=== PATIENT | female | born 1995 | race Caucasian/White ===

== ENCOUNTER 2019-05-05 20:37 | Outpatient (CLI) | payer MEDICAID ==
[2019-05-05 21:28] LABS: APPEARANCE,URINE CLOUDY; BILIRUBIN,URINE NEGATIVE (NEGATIVE); COLOR,URINE YELLOW; GLUCOSE, URINE NEGATIVE (NEGATIVE); KETONES,URINE NEGATIVE (NEGATIVE); LEUKOCYTE ESTERASE,URINE LARGE (NEGATIVE); NITRITE,URINE NEGATIVE (NEGATIVE); PROTEIN,URINE NEGATIVE (NEGATIVE); URINE SPECIFIC GRAVITY 1.006; UROBILINOGEN,URINE NEGATIVE mg/dL (<2.0)
[2019-05-05 21:46] LABS: URINE AMPHETAMINES SCREEN NEGATIVE; URINE BARBITURATES SCREEN NEGATIVE; URINE BENZODIAZEPINES SCREEN NEGATIVE; URINE COCAINE SCREEN NEGATIVE; URINE MARIJUANA (THC) SCREEN NEGATIVE; URINE METHADONE SCREEN NEGATIVE; URINE PHENCYCLIDINE SCREEN NEGATIVE
--- NOTE | 2019-05-05 21:56 | Non Stress Test Report ---
Non Stress Test Datetime Report Generated by CPN: 05/05/2019 21:56 DEMOGRAPHIC EGA NST: 38.0 INDICATION Indication for Study (NST) Other: Labor check MONITORING Monitor Explained: Monitor Explained; Test Explained; Patient Verbalized Understanding Time on Monitor: 05/05/2019 20:56 Time off Monitor: 05/05/2019 21:20 NST Duration: 24 NST INTERVENTIONS NST Interventions: PO Hydration Physician Notified NST: Dr. London BABY A: [id number] BABY A Movement : Present Contraction Frequency : irr FHR Baseline : 155 Accelerations : 15X15 Decelerations : None Variability : Moderate 6-25bpm NST Review: Meets Criteria for Reactive NST NST Review and Verified By : LI Cardoza Results: Reactive NST REPORT Report Trigger: Send Report
== END 2019-05-05 21:53 | disposition home or self-care (01) ==
LOC: LC 20:37
PROVIDERS: ATTEND Obstetrics & Gynecology
PROC: 4A1HXCZ Monitoring of Products of Conception, Cardiac Rate, External Approach (ICD-10-PCS; principal; 2019-05-05)
DX: Z34.93 Encounter for supervision of normal pregnancy, unspecified, third trimester (principal)
CPT/HCPCS: 59025; 80307; 81005; 84112

== ENCOUNTER 2019-05-22 08:26 | Inpatient (IN) | payer MEDICAID ==
[2019-05-22] MEDS ORDERED: PENICILLIN G POTASSIUM 5,000,000 UNIT in DEXTROSE 5%-WATER 100 ML IV ONE (09:03)
[2019-05-22] MEDS ORDERED: DEXTROSE 5%-LACTATED RINGERS 1,000 ML IV PRN (09:03)
[2019-05-22] MEDS ORDERED: RINGERS SOLUTION,LACTATED 1,000 ML IV ONE (09:03)
[2019-05-22] MEDS ORDERED: PENICILLIN G-K 5 MILLION UNIT VIAL ONE (09:17)
[2019-05-22 09:20] LABS: APPEARANCE,URINE CLOUDY; BILIRUBIN,URINE NEGATIVE (NEGATIVE); GLUCOSE, URINE NEGATIVE (NEGATIVE); KETONES,URINE NEGATIVE (NEGATIVE); LEUKOCYTE ESTERASE,URINE SMALL (NEGATIVE); NITRITE,URINE NEGATIVE (NEGATIVE); PROTEIN,URINE 100 mg/dL (NEGATIVE); URINE SPECIFIC GRAVITY 1.011; UROBILINOGEN,URINE NEGATIVE mg/dL (<2.0)
--- NOTE | 2019-05-22 09:20 | Admission Physical ---
Datetime Report Generated by CPN: 05/22/2019 09:20 CURRENT ADMISSION Chief Complaint: Suspected Ruptured Membranes Admit Impression : Term, Intrauterine ; Ruptured Membranes Admit Impression- Other: GBS + Admit Plan: Admit to Unit; Initiate Labor Protocol Admit Plan- Other: Start PCN prophylaxis, pt may have an epidural when she desires ALLERGIES Medication Allergies: No Known Allergies (05/05/2019) OBSTETRICAL HISTORY EDC: 05/19/2019 00:00 : 2 Para: 1 PHYSICAL EXAM General: Normal HEENT: Normal Neurologic: Normal Thyroid: Normal Heart: Normal Lungs: Normal Breast: Normal Back: Normal Abdomen: Normal Genitourinary Exam: Normal Extremities: Normal DTRs: Normal Pelvic Type: Adequate Vital Signs: Reviewed MEMBRANES Membranes: Ruptured Amniotic Fluid Color: Clear FETUS A EGA: 40.3 Monitoring: External US FHR- Baseline: 130 Variability: Moderate 6-25bpm Accelerations: 15X15 Decelerations: None Admit Comment: at 40.3 wks presents from home c/o SROM this morning around 0800. +GBS status. Per RN pt is grossly ruptured and 3 cm on exam. Will plan to admit and start PCN prophylaxis. Attending MD is Dr Gardner, and she is aware of pt status. EFW 7+10 on leapolds INFORMED CONSENT Assignment: Mary Kate Gardner MD Signature: with User ID: Lalito : with User ID: Lalito
[2019-05-22 09:21] LABS: ABSOLUTE EOSINOPHILS # (AUTO) 0.1 10^3/uL (0.0-0.6); ABSOLUTE LYMPHOCYTES (AUTO) 3.5 10^3/uL (0.5-4.7); ABSOLUTE MONOCYTES (AUTO) 0.5 10^3/uL (0.1-1.4); BASOPHILS % (AUTO) 0.3 % (0-2); EOSINOPHILS % (AUTO) 1.1 % (0-6); HEMATOCRIT 33.1 % (36.0-47.0); HEMOGLOBIN 11.2 g/dL (12.0-15.5); LYMPHOCYTES % (AUTO) 31.2 % (13-45); MEAN CORPUSCULAR HEMOGLOBIN 26.8 pg (27.0-33.4); MEAN CORPUSCULAR HGB CONC 33.9 g/dL (32.0-36.0); MEAN CORPUSCULAR VOLUME 79 fl (80-97); MONOCYTES % (AUTO) 4.3 % (3-13); PLATELET COUNT 276 10^3/uL (150-450); RED BLOOD COUNT 4.18 10^6/uL (3.72-5.28); RED CELL DISTRIBUTION WIDTH 15.3 % (11.5-14.0); SEGMENTED NEUTROPHILS % (AUTO) 63.1 % (42-78); TOTAL CELLS COUNTED % (AUTO) 100 %; WHITE BLOOD COUNT 11.1 10^3/uL (4.0-10.5)
[2019-05-22 09:30] LABS: COLOR,URINE YELLOW
[2019-05-22 10:05] LABS: URINE AMPHETAMINES SCREEN NEGATIVE; URINE BARBITURATES SCREEN NEGATIVE; URINE BENZODIAZEPINES SCREEN NEGATIVE; URINE COCAINE SCREEN NEGATIVE; URINE MARIJUANA (THC) SCREEN NEGATIVE; URINE METHADONE SCREEN NEGATIVE; URINE PHENCYCLIDINE SCREEN NEGATIVE
[2019-05-22] MEDS ORDERED: OXYTOCIN 10 UNIT/ML VIAL ONE (10:21)
[2019-05-22] MEDS ORDERED: MISOPROSTOL 0.2 MG TABLET ONE (10:21)
[2019-05-22] MEDS ORDERED: EPHEDRINE SULFATE INJ 50 MG/1 ML AMPULE ONE (10:21)
[2019-05-22] MEDS ORDERED: OXYTOCIN/NORMAL SALINE 20 UNIT/1,000 ML RTUINJ ONE (10:22)
[2019-05-22] MEDS ORDERED: FENTANYL/BUPIVACAINE/NS/PF 300 MCG/150 ML RTUINJ EPI ONE (10:22)
[2019-05-22] MEDS ORDERED: BUPIVACAINE HCL 0.25 % INJ/PF (2.5 MG/1 ML) 30 ML VIAL ONE (10:22)
[2019-05-22] MEDS ORDERED: LIDOCAINE 1% INJ-PF (10 MG/ML) 30 ML SDV ONE (10:22)
[2019-05-22] MEDS ORDERED: OXYTOCIN/NORMAL SALINE 20 UNIT/1,000 ML RTUINJ IV PRN ×2 (12:31→18:29)
[2019-05-22] MEDS: PENICILLIN G POTASSIUM 2,500,000 UNIT in DEXTROSE 5%-WATER 50 ML IV SCH ×2 (13:21→17:14)
[2019-05-22] MEDS ORDERED: FENTANYL CITRATE INJ/PF 100 MCG/2 ML AMPUL IV ONE (13:52)
[2019-05-22] MEDS ORDERED: FENTANYL CITRATE INJ/PF 100 MCG/2 ML AMPUL ONE (13:56)
[2019-05-22 17:28] LABS: ABSOLUTE BASOPHILS # (AUTO) 0.1 10^3/uL (0.0-0.2); ABSOLUTE LYMPHOCYTES (AUTO) 1.6 10^3/uL (0.5-4.7); ABSOLUTE MONOCYTES (AUTO) 0.4 10^3/uL (0.1-1.4); ABSOLUTE NEUT (AUTO) 13.4 10^3/uL (1.7-8.2); BASOPHILS % (AUTO) 0.4 % (0-2); HEMATOCRIT 35.3 % (36.0-47.0); HEMOGLOBIN 11.8 g/dL (12.0-15.5); LYMPHOCYTES % (AUTO) 10.4 % (13-45); MEAN CORPUSCULAR HEMOGLOBIN 26.8 pg (27.0-33.4); MEAN CORPUSCULAR HGB CONC 33.5 g/dL (32.0-36.0); MEAN CORPUSCULAR VOLUME 80 fl (80-97); MONOCYTES % (AUTO) 2.5 % (3-13); PLATELET COUNT 282 10^3/uL (150-450); RED BLOOD COUNT 4.41 10^6/uL (3.72-5.28); RED CELL DISTRIBUTION WIDTH 15.1 % (11.5-14.0); SEGMENTED NEUTROPHILS % (AUTO) 86.7 % (42-78); TOTAL CELLS COUNTED % (AUTO) 100 %; WHITE BLOOD COUNT 15.5 10^3/uL (4.0-10.5)
--- NOTE | 2019-05-22 17:30 | PDOC CONSULTATION ---
Consultation Consult Date: 05/22/19 Attending physician:: ZURI RAI Provider Consulted: MICKI MARSHALL JR Consult reason:: chest pain History of Present Illness Admission Date/PCP: 05/22/19 09:04 History of Present Illness: SONNY BARRY is a 24 year old female who comes in full term with spontaneous rupture of amniotic membranes. Patient was in the stages of transitioning when she developed hypotension, chest pain, muscle weakness. We were asked to see the patient for her complaint of chest pain.. Patient has no history of cardiac disease. Patient has no history of chronic illnesses such as diabetes or hypertension. Patient states that this episode feels like her previous "panic attacks". States she has had these for the last couple years and will have 2 or 3/year. She has never seen a physician or been diagnosed with anxiety disorder or panic attacks. At the time of my visit patient no longer has any chest pain or shortness of breath, patient is not diaphoretic. Patient was seen in the labor and delivery room. Past Medical History Cardiac Medical History: Reports: None Pulmonary Medical History: Reports: None Psychiatric Medical History: Reports: Depression - When asked about depression patient states she probably does. Social History Smoking Status: Unknown if Ever Smoked Family History Parental Family History Reviewed: No Children Family History Reviewed: No Sibling(s) Family History Reviewed.: No Medication/Allergy Home Medications: Prenat 115/Iron Fum/Folic/Dss [ 19 Tablet] 1 tab PO DAILY 05/05/19 Allergies/Adverse Reactions: No Known Allergies Allergy (Verified 05/05/19 20:51) Review of Systems Constitutional: ABSENT: chills, fever(s), headache(s), weight gain, weight loss Cardiovascular: PRESENT: chest pain Respiratory: ABSENT: cough, hemoptysis Neurological: ABSENT: abnormal gait, abnormal speech, confusion, dizziness, focal weakness, syncope Psychiatric: PRESENT: anxiety Physical Exam Vital Signs: Intake & Output 05/21/19 05/22/19 05/23/19 06:59 06:59 06:59 Weight 90.1 kg General appearance: PRESENT: no acute distress, cooperative Respiratory exam: PRESENT: clear to auscultation margi. ABSENT: rales, rhonchi, wheezes Cardiovascular exam: PRESENT: RRR. ABSENT: diastolic murmur, rubs, systolic murmur Neurological exam: PRESENT: alert, awake, oriented to person, oriented to place, oriented to time, oriented to situation, CN II-XII grossly intact. ABSENT: motor sensory deficit Psychiatric exam: PRESENT: appropriate affect, normal mood. ABSENT: homicidal ideation, suicidal ideation Results Laboratory Results: 05/22/19 08:53 05/22/19 05/22/19 05/22/19 08:35 08:35 08:53 WBC 11.1 H RBC 4.18 Hgb 11.2 L Hct 33.1 L MCV 79 L MCH 26.8 L MCHC 33.9 RDW 15.3 H Plt Count 276 Seg Neutrophils % 63.1 Urine Color YELLOW Urine Appearance CLOUDY Urine pH 7.0 Ur Specific [place] 1.011 Urine Protein 100 H Urine Glucose (UA) NEGATIVE Urine Ketones NEGATIVE Urine Blood MODERATE H Urine Nitrite NEGATIVE Ur Leukocyte Esterase SMALL H Blood Type B POSITIVE Antibody Screen NEGATIVE Assessment and Plan - Diagnosis (1) Chest pain Is this a current diagnosis for this admission?: Yes (2) Panic disorder Is this a current diagnosis for this admission?: Yes (3) Carrier or suspected carrier of group B Streptococcus Is this a current diagnosis for this admission?: Yes (4) Spontaneous rupture of amniotic membranes Is this a current diagnosis for this admission?: Yes - Plan Summary Summary: I have discussed case with obstetrics and feel that a CK-MB index as well as troponin is indicated. Do not feel that a series of cardiac enzymes are warranted. EKG interpreted by me at the bedside appears to be grossly normal. After discussion discussing this with the patient in the objects conservator I think that this will be self-limiting acquired no further intervention. If patient becomes symptomatic again please feel free to reconsult. If patient's first CK- MB index and/or troponin is elevated higher than normal then would repeat a second and third 6 hours apart and reconsult. - Time Time Spent with patient: 35 or more minutes
[2019-05-22 17:57] LABS: CREATINE KINASE MB 0.29 ng/mL (<4.55)
[2019-05-22 17:58] LABS: TROPONIN I < 0.012 ng/mL
[2019-05-22 18:00] LABS: ALBUMIN 3.8 g/dL (3.5-5.0); ALKALINE PHOSPHATASE 282 U/L (38-126); ANION GAP 9 (5-19); ASPARTATE AMINO TRANSFERASE 17 U/L (14-36); BILIRUBIN,TOTAL 0.6 mg/dL (0.2-1.3); BLOOD UREA NITROGEN 5 mg/dL (7-20); CALCIUM 9.3 mg/dL (8.4-10.2); CARBON DIOXIDE 21 mmol/L (22-30); CHLORIDE 103 mmol/L (98-107); GLUCOSE 74 mg/dL (75-110); POTASSIUM 5.7 mmol/L (3.6-5.0); TOTAL PROTEIN 7.5 g/dL (6.3-8.2)
[2019-05-22] MEDS ORDERED: ACETAMINOPHEN 325 MG TABLET PO PRN (18:29)
[2019-05-22] MEDS ORDERED: GLYCERIN/WITCH HAZEL LEAF 1 EACH MED..WIPE TP PRN (18:29)
[2019-05-22] MEDS ORDERED: MAGNESIUM HYDROXIDE SUSP 30 ML UDCUP PO PRN (18:29)
[2019-05-22] MEDS ORDERED: ZOLPIDEM TARTRATE 5 MG TABLET PO PRN (18:29)
[2019-05-22] MEDS ORDERED: NA PHOS,M-B/NA PHOS,DI-BA (ADULT) 133 ML ENEMA PR PRN (18:29)
[2019-05-22] MEDS ORDERED: DIPHENHYDRAMINE HCL 25 MG CAPSULE PO PRN (18:29)
[2019-05-22] MEDS ORDERED: PROMETHAZINE HCL 25 MG TABLET PO PRN (18:29)
[2019-05-22] MEDS ORDERED: ACETAMINOPHEN WITH CODEINE #3 TABLET PO PRN ×2 (18:29)
[2019-05-22] MEDS ORDERED: MEASLES,MUMPS&RUBELLA VACC/PF 0.5 ML VIAL SUBCUT PRN (18:29)
[2019-05-22] MEDS ORDERED: DIPH/PERTUSS(ACELL)/TETANUS VAC/PF 0.5 ML SYR (>=10YO) IM PRN (18:29)
[2019-05-22] MEDS ORDERED: PROMETHAZINE HCL 25 MG SUPP.RECT PR PRN (18:29)
[2019-05-22] MEDS ORDERED: PROMETHAZINE HCL INJ 25 MG/1 ML VIAL IV PRN (18:29)
[2019-05-22] MEDS ORDERED: DIBUCAINE 1% OINTMENT 28 GM TP PRN (18:29)
[2019-05-22] MEDS ORDERED: PSEUDOEPHEDRINE HCL 30 MG TABLET PO PRN (18:29)
[2019-05-22] MEDS ORDERED: BENZOCAINE/MENTHOL AEROSOL SPRAY 56 ML TOP PRN (18:29)
[2019-05-22] MEDS: IBUPROFEN 800 MG TABLET PO SCH (21:57)
[2019-05-22] MEDS: FAMOTIDINE 20 MG TABLET PO SCH (21:57)
[2019-05-23] MEDS: FAMOTIDINE 20 MG TABLET PO SCH ×3 (04:11→21:29)
[2019-05-23] MEDS: IBUPROFEN 800 MG TABLET PO SCH ×3 (06:02→21:29)
[2019-05-23 07:08] LABS: HEMATOCRIT 27.6 % (36.0-47.0); MEAN CORPUSCULAR HEMOGLOBIN 27.3 pg (27.0-33.4); MEAN CORPUSCULAR HGB CONC 34.3 g/dL (32.0-36.0); MEAN CORPUSCULAR VOLUME 80 fl (80-97); PLATELET COUNT 211 10^3/uL (150-450); RED BLOOD COUNT 3.47 10^6/uL (3.72-5.28); RED CELL DISTRIBUTION WIDTH 14.9 % (11.5-14.0); WHITE BLOOD COUNT 12.1 10^3/uL (4.0-10.5)
[2019-05-23 07:13] LABS: HEMOGLOBIN 9.5 g/dL (12.0-15.5)
--- NOTE | 2019-05-23 09:06 | PDOC PROGRESS REPORT ---
Subjective-OB Progress Note for:: 05/23/19 Subjective: Doing well, tired, no c/o, family at BS Physical Exam (OB) Vital Signs: Temp Pulse Resp BP Pulse Ox 97.9 F 62 18 102/63 100 05/23/19 07:41 05/23/19 07:41 05/23/19 07:41 05/23/19 07:41 05/23/19 07:41 Intake & Output 05/22/19 05/23/19 05/24/19 06:59 06:59 06:59 Weight 90.1 kg - PIH/Pre-Eclampsia Clonus: Negative Headache: Absent Epigastric Pain: No Visual Changes: No - Lochia Lochia Amount: Small 10-25 ml Lochia Color: Rubra/Red - Abdomen Description: Soft, Round Hernia Present: No Fundal Description: Firm, Midline Fundal Height: u/u - u/2 Objective-Diagnostic Laboratory: 05/23/19 06:13 05/22/19 17:18 05/22/19 05/22/19 05/22/19 08:35 08:35 08:53 WBC 11.1 H RBC 4.18 Hgb 11.2 L Hct 33.1 L MCV 79 L MCH 26.8 L MCHC 33.9 RDW 15.3 H Plt Count 276 Seg Neutrophils % 63.1 Sodium Potassium Chloride Carbon Dioxide Anion Gap BUN Creatinine Est GFR ( Amer) Glucose Calcium Magnesium Total Bilirubin AST Alkaline Phosphatase Total Protein Albumin TSH Urine Color YELLOW Urine Appearance CLOUDY Urine pH 7.0 Ur Specific [place] 1.011 Urine Protein 100 H Urine Glucose (UA) NEGATIVE Urine Ketones NEGATIVE Urine Blood MODERATE H Urine Nitrite NEGATIVE Ur Leukocyte Esterase SMALL H Blood Type B POSITIVE Antibody Screen NEGATIVE 05/22/19 05/22/19 05/22/19 17:18 17:18 17:18 WBC 15.5 H RBC 4.41 Hgb 11.8 L Hct 35.3 L MCV 80 MCH 26.8 L MCHC 33.5 RDW 15.1 H Plt Count 282 Seg Neutrophils % 86.7 H Sodium 132.8 L Potassium 5.7 H Chloride 103 Carbon Dioxide 21 L Anion Gap 9 BUN 5 L Creatinine 0.57 Est GFR ( Amer) > 60 Glucose 74 L Calcium 9.3 Magnesium 1.7 Total Bilirubin 0.6 AST 17 Alkaline Phosphatase 282 H Total Protein 7.5 Albumin 3.8 TSH 1.43 Urine Color Urine Appearance Urine pH Ur Specific [place] Urine Protein Urine Glucose (UA) Urine Ketones Urine Blood Urine Nitrite Ur Leukocyte Esterase Blood Type Antibody Screen 05/23/19 06:13 WBC 12.1 H RBC 3.47 L Hgb 9.5 L D Hct 27.6 L MCV 80 MCH 27.3 MCHC 34.3 RDW 14.9 H Plt Count 211 Seg Neutrophils % Sodium Potassium Chloride Carbon Dioxide Anion Gap BUN Creatinine Est GFR ( Amer) Glucose Calcium Magnesium Total Bilirubin AST Alkaline Phosphatase Total Protein Albumin TSH Urine Color Urine Appearance Urine pH Ur Specific [place] Urine Protein Urine Glucose (UA) Urine Ketones Urine Blood Urine Nitrite Ur Leukocyte Esterase Blood Type Antibody Screen 05/22/19 17:18 CK-MB (CK-2) 0.29 Troponin I < 0.012 Assessment and Plan(PN) - Assessment and Plan (2) Chest pain Qualifiers: Chest pain type: unspecified Qualified Code(s): R07.9 - Chest pain, unspecified Is this a current diagnosis for this admission?: Yes (3) Panic disorder Is this a current diagnosis for this admission?: Yes (4) Spontaneous rupture of amniotic membranes Is this a current diagnosis for this admission?: Yes (5) Carrier or suspected carrier of group B Streptococcus Is this a current diagnosis for this admission?: Yes - Time Spent with Patient Time with patient: Less than 15 minutes Medications reviewed and adjusted accordingly: Yes - Disposition Anticipated Discharge: Home Within: within 24 hours
[2019-05-23] MEDS: PRENATAL VITAMIN W DHA CAPSULE PO SCH (10:02)
[2019-05-23] MEDS: DOCUSATE SODIUM 100 MG CAPSULE PO SCH ×2 (10:02→17:36)
[2019-05-23] MEDS: FERROUS SULFATE 325 MG TABLET PO SCH ×2 (10:02→17:36)
[2019-05-23] MEDS: SENNOSIDES/DOCUSATE 8.6-50 MG 1 EACH TABLET PO SCH (10:02)
[2019-05-23] MEDS ORDERED: DIPH/PERTUSS(ACELL)/TETANUS VAC/PF 0.5 ML SYR (>=10YO) IM PRN (15:30)
[2019-05-23] MEDS ORDERED: MEASLES,MUMPS&RUBELLA VACC/PF 0.5 ML VIAL SUBCUT PRN (15:30)
--- NOTE | 2019-05-23 16:08 | EKG REPORT ---
SEVERITY:- BORDERLINE ECG - SINUS RHYTHM INFERIOR Q WAVES, PROBABLY NORMAL VARIATION : Confirmed by: Bernadette Prakash 23-May-2019 16:08:02
[2019-05-24] MEDS: IBUPROFEN 800 MG TABLET PO SCH (05:03)
[2019-05-24 07:38] VITALS: BP 110/65
--- NOTE | 2019-05-24 09:54 | PDOC PROGRESS REPORT ---
Subjective-OB Progress Note for:: 05/24/19 Subjective: Doing well, ready to go home, , voiding and eating well Physical Exam (OB) Vital Signs: Temp Pulse Resp BP Pulse Ox 98.1 F 59 L 18 110/65 100 05/24/19 07:33 05/24/19 07:33 05/24/19 07:33 05/24/19 07:33 05/24/19 07:33 Intake & Output 05/23/19 05/24/19 05/25/19 06:59 06:59 06:59 Intake Total 830 Balance 830 Weight 90.1 kg - PIH/Pre-Eclampsia Clonus: Negative Headache: Absent Epigastric Pain: No Visual Changes: No - Lochia Lochia Amount: Scant < 10 ml Lochia Color: Rubra/Red - Abdomen Description: Soft Hernia Present: No Fundal Description: Firm, Midline Fundal Height: u/u - u/2 Objective-Diagnostic Laboratory: 05/23/19 06:13 05/22/19 17:18 05/22/19 17:18 CK-MB (CK-2) 0.29 Troponin I < 0.012 Assessment and Plan(PN) - Assessment and Plan (2) Chest pain Qualifiers: Chest pain type: unspecified Qualified Code(s): R07.9 - Chest pain, unspecified Is this a current diagnosis for this admission?: Yes (3) Panic disorder Is this a current diagnosis for this admission?: Yes (4) Spontaneous rupture of amniotic membranes Is this a current diagnosis for this admission?: Yes (5) Carrier or suspected carrier of group B Streptococcus Is this a current diagnosis for this admission?: Yes - Time Spent with Patient Medications reviewed and adjusted accordingly: Yes - Disposition Anticipated Discharge: Home Within: within 24 hours
--- NOTE | 2019-05-24 10:01 | PDOC DISCHARGE SUMMARY ---
Impression - Admit/DC Date/PCP Admission Date/Primary Care Provider: 05/22/19 09:04 Discharge Date: 05/24/19 - Discharge Diagnosis (1) Delivery normal Is this a current diagnosis for this admission?: Yes (2) Chest pain Is this a current diagnosis for this admission?: Yes (3) Panic disorder Is this a current diagnosis for this admission?: Yes (4) Spontaneous rupture of amniotic membranes Is this a current diagnosis for this admission?: Yes (5) Carrier or suspected carrier of group B Streptococcus Is this a current diagnosis for this admission?: Yes - Assessment Summary: I have discussed case with obstetrics and feel that a CK-MB index as well as troponin is indicated. Do not feel that a series of cardiac enzymes are warranted. EKG interpreted by me at the bedside appears to be grossly normal. After discussion discussing this with the patient in the ict sales assistant I think that this will be self-limiting acquired no further intervention. If patient becomes symptomatic again please feel free to reconsult. If patient's first CK- MB index and/or troponin is elevated higher than normal then would repeat a second and third 6 hours apart and reconsult. - Additional Information Resuscitation Status: Full Code Discharge Diet: As Tolerated, Regular Discharge Activity: Activity As Tolerated, Pelvic Rest Referrals: MERARI BARRY MD [ACTIVE STAFF] - (4 weeks) Home Medications: Prenat 115/Iron Fum/Folic/Dss [ 19 Tablet] 1 tab PO DAILY 05/05/19 HPI Gestational Age: 4o Reason(s) for Admission: Induction of Labor - 40, PROM, Group B Strep Positive Procedures: Ultrasound Intrapartum Procedure(s): Spontaneous Vaginal Delivery Hospital Course Hospital Course: routine Results Laboratory Results: WBC 12.1 10^3/uL (4.0-10.5) H 05/23/19 06:13 RBC 3.47 10^6/uL (3.72-5.28) L 05/23/19 06:13 Hgb 9.5 g/dL (12.0-15.5) L D 05/23/19 06:13 Hct 27.6 % (36.0-47.0) L 05/23/19 06:13 MCV 80 fl (80-97) 05/23/19 06:13 MCH 27.3 pg (27.0-33.4) 05/23/19 06:13 MCHC 34.3 g/dL (32.0-36.0) 05/23/19 06:13 RDW 14.9 % (11.5-14.0) H 05/23/19 06:13 Plt Count 211 10^3/uL (150-450) 05/23/19 06:13 Lymph % (Auto) 10.4 % (13-45) L 05/22/19 17:18 [place] % (Auto) 2.5 % (3-13) L 05/22/19 17:18 Eos % (Auto) 0.0 % (0-6) 05/22/19 17:18 Baso % (Auto) 0.4 % (0-2) 05/22/19 17:18 Absolute Neuts (auto) 13.4 10^3/uL (1.7-8.2) H 05/22/19 17:18 Absolute Lymphs (auto) 1.6 10^3/uL (0.5-4.7) 05/22/19 17:18 Absolute Monos (auto) 0.4 10^3/uL (0.1-1.4) 05/22/19 17:18 Absolute Eos (auto) 0.0 10^3/uL (0.0-0.6) 05/22/19 17:18 Absolute Basos (auto) 0.1 10^3/uL (0.0-0.2) 05/22/19 17:18 Seg Neutrophils % 86.7 % (42-78) H 05/22/19 17:18 Sodium 132.8 mmol/L (137-145) L 05/22/19 17:18 Potassium 5.7 mmol/L (3.6-5.0) H 05/22/19 17:18 Chloride 103 mmol/L (98-107) 05/22/19 17:18 Carbon Dioxide 21 mmol/L (22-30) L 05/22/19 17:18 Anion Gap 9 (5-19) 05/22/19 17:18 BUN 5 mg/dL (7-20) L 05/22/19 17:18 Creatinine 0.57 mg/dL (0.52-1.25) 05/22/19 17:18 Est GFR ( Amer) > 60 (>60) 05/22/19 17:18 Est GFR (MDRD) Non-Af > 60 (>60) 05/22/19 17:18 Glucose 74 mg/dL (75-110) L 05/22/19 17:18 Calcium 9.3 mg/dL (8.4-10.2) 05/22/19 17:18 Magnesium 1.7 mg/dL (1.6-2.3) 05/22/19 17:18 Total Bilirubin 0.6 mg/dL (0.2-1.3) 05/22/19 17:18 Direct Bilirubin 0.0 mg/dL (0.0-0.4) 05/22/19 17:18 Neonat Total Bilirubin Not Reportable 05/22/19 17:18 Neonat Direct Bilirubin Not Reportable 05/22/19 17:18 Neonat Indirect Bili Not Reportable 05/22/19 17:18 AST 17 U/L (14-36) 05/22/19 17:18 ALT 9 U/L (<35) 05/22/19 17:18 Alkaline Phosphatase 282 U/L (38-126) H 05/22/19 17:18 CK-MB (CK-2) 0.29 ng/mL (<4.55) 05/22/19 17:18 Troponin I < 0.012 ng/mL 05/22/19 17:18 Total Protein 7.5 g/dL (6.3-8.2) 05/22/19 17:18 Albumin 3.8 g/dL (3.5-5.0) 05/22/19 17:18 TSH 1.43 uIU/mL (0.47-4.68) 05/22/19 17:18 Urine Color YELLOW 05/22/19 08:35 Urine Appearance CLOUDY 05/22/19 08:35 Urine pH 7.0 (5.0-9.0) 05/22/19 08:35 Ur Specific [place] 1.011 05/22/19 08:35 Urine Protein 100 mg/dL (NEGATIVE) H 05/22/19 08:35 Urine Glucose (UA) NEGATIVE mg/dL (NEGATIVE) 05/22/19 08:35 Urine Ketones NEGATIVE mg/dL (NEGATIVE) 05/22/19 08:35 Urine Blood MODERATE (NEGATIVE) H 05/22/19 08:35 Urine Nitrite NEGATIVE (NEGATIVE) 05/22/19 08:35 Urine Bilirubin NEGATIVE (NEGATIVE) 05/22/19 08:35 Urine Urobilinogen NEGATIVE mg/dL (<2.0) 05/22/19 08:35 Ur Leukocyte Esterase SMALL (NEGATIVE) H 05/22/19 08:35 Urine Ascorbic Acid NEGATIVE (NEGATIVE) 05/22/19 08:35 Urine Opiates Screen NEGATIVE 05/22/19 08:35 Urine Methadone Screen NEGATIVE 05/22/19 08:35 Ur Barbiturates Screen NEGATIVE 05/22/19 08:35 Ur Phencyclidine Scrn NEGATIVE 05/22/19 08:35 Ur Amphetamines Screen NEGATIVE 05/22/19 08:35 U Benzodiazepines Scrn NEGATIVE 05/22/19 08:35 Urine Cocaine Screen NEGATIVE 05/22/19 08:35 U Marijuana (THC) Screen NEGATIVE 05/22/19 08:35 RPR NONREACTIVE (NONREACTIVE) 05/22/19 08:53 Blood Type B POSITIVE 05/22/19 08:35 Antibody Screen NEGATIVE 05/22/19 08:35 05/22/19 17:18 CK-MB (CK-2) 0.29 Troponin I < 0.012 Plan Health Concerns: routine Plan of Treatment: discharge home, rev S&S to report Goals: no complications Time Spent: Less than 30 Minutes
[2019-05-24] MEDS: PRENATAL VITAMIN W DHA CAPSULE PO SCH (10:11)
[2019-05-24] MEDS: SENNOSIDES/DOCUSATE 8.6-50 MG 1 EACH TABLET PO SCH (10:11)
[2019-05-24] MEDS: FAMOTIDINE 20 MG TABLET PO SCH (10:11)
[2019-05-24] MEDS: FERROUS SULFATE 325 MG TABLET PO SCH (10:11)
[2019-05-24] MEDS: DOCUSATE SODIUM 100 MG CAPSULE PO SCH (10:11)
--- NOTE | 2019-05-29 08:48 | Delivery Summary ---
Del Sum A-C Datetime Report Generated by CPN: 05/29/2019 08:47 DELIVERY PERSONNEL DELIVERY PERSONNEL: [id number] Delivery Doctor:: Mary Kate Gardner MD Anesthesiologist:: Stephan Saldaña MD Labor and Delivery Nurse:: Lucie Pierre RN Nursery Nurse:: Mary Jo Felder RN Employment Office Clerk/AEROGRAPHER: Naomy Simpson CNA II Employment Office Clerk/AEROGRAPHER: Fanny Benito, ENGLISH FACULTY MEMBER MATERNAL INFORMATION Delivery Anesthesia: Epidural Medications After Delivery: Pitocin Bolus-Please Comment; Pitocin Drip 20 Units/1000ml NSS Meds After Delivery Comment: Pitocin 20 units/1000ml Estimated Blood Loss (ml): 50 Maternal Complications: None; Other Other Maternal Complications: chest pain, anxiety Provider Comments: VFI delivered in ANANYA presentation with tight doubly nuchal cord. Shoulders and body delivered without difficulty. Cord doubly clamped and cut. Infant to maternal abdomen for NRP. Placenta delivered intact spontaneously. FF at U. Mother and baby stable upon provider leaving the room. No perineal lacerations. LABOR SUMMARY EDC: 05/19/2019 00:00 No. Babies in Womb: 1 Attempted: No Labor Anesthesia: Epidural LABOR INFORMATION Reason for Induction: Not Applicable Onset of Labor: 05/22/2019 12:24 Complete Dilatation: 05/22/2019 17:53 Oxytocin: Augmentation Group B Beta Strep: positive (Annotations: Data stored by CPN on behalf of user) Antibiotics # of Doses: 3 Antibiotics Time of Last Dose: 1713 Name of Antibiotic Given: Penicillin G Steroids Given: None Reason Steroids Not Administered: Not Applicable MEMBRANES Membranes Rupture Method: Spontaneous Rupture of Membranes: 05/22/2019 07:30 Length of Rupture (hr): 10.83 Amniotic Fluid Color: Light Meconium Amniotic Fluid Amount: Moderate Amniotic Fluid Odor: Normal STAGES OF LABOR Stage 1 hr: 5 Stage 1 min: 29 Stage 2 hr: 0 Stage 2 min: 27 Stage 3 hr: 0 Stage 3 min: 2 Total Time in Labor hr: 5 Total Time in Labor min: 58 VAGINAL DELIVERY Episiotomy: None Laceration #1: None Laceration Extension #1: N/A Laceration Repair: Not Applicable Sponge Count Correct: Yes Sharps Count Correct: Yes BABY A INFORMATION Infant Delivery Date/Time: 05/22/2019 18:20 Method of Delivery: Vaginal Nurse Controlled Delivery: No Born in Route : No : N/A Forceps: N/A Vacuum Extraction: N/A Shoulder Dystocia : No PRESENTATION/POSITION BABY A Presentation: Cephalic Cephalic Presentation: Vertex Vertex Position: Left Occipital Anterior Breech Presentation: N/A PLACENTA INFORMATION BABY A Placenta Delivery Time : 05/22/2019 18:22 Placenta Method of Delivery: Spontaneous Placenta Status: Delivered SCORES BABY A Heart Rate 1 min: >100 bpm Resp Effort 1 min: Good Cry Reflex Irritability 1 min: Cough or Sneeze or Pulls Away Muscle Tone 1 min: Active Motion Color 1 min: Blue/Pale SCORE 1 MIN: 8 Heart Rate 5 min: >100 bpm Resp Effort 5 min: Good Cry Reflex Irritability 5 min: Cough or Sneeze or Pulls Away Muscle Tone 5 min: Active Motion Color 5 min: Body [place], Extremities Blue SCORE 5 MIN: 9 INFANT INFORMATION BABY A Gestational Age at Delivery: 40.3 Gestational Status: Full Term- 39- 40.6 Weeks Outcome : Liveborn Condition : Stable Sex: Female IDENTIFICATION BABY A Infant Verification Date/Time: 05/22/2019 18:29 ID Band Number: [id number] Mother's Name Verified: Yes RN Verifying Infant: AFeuston Additional Verifying Personnel: SANDREW RedmondA II WEIGHT/LENGTH BABY A Infant Birthweight (gm): 3650 Weight (lb): 8 Weight (oz): 1 Infant Length (in): 21.50 Infant Length (cm): 54.61 CORD INFORMATION BABY A No. Cord Vessels: 3 Nuchal Cord : Around Neck x2, Tight Cord Blood Taken: Yes-For Storage (Mom's Blood type +) Suction: None ASSESSMENT BABY A Infant Complications: Meconium Infant Respirations: Appears Normal Skin to Skin: Yes BABY B INFORMATION : N/A SIGNATURES Signature: with User ID: [email or web address]
== END 2019-05-24 11:44 | disposition home or self-care (01) | DRG 807 ==
LOC: LC 08:26 → LR 09:04 → 2S 20:55
PROVIDERS: ADMIT Student in an Organized Health Care Education/Training Program; ATTEND Student in an Organized Health Care Education/Training Program
PROC: 10E0XZZ Delivery of Products of Conception, External Approach (ICD-10-PCS; principal; 2019-05-22)
DX: O69.1XX0 Labor and delivery complicated by cord around neck, with compression, not applicable or unspecified (principal); Z37.0 Single live birth; O99.824 Streptococcus B carrier state complicating childbirth; F41.0 Panic disorder [episodic paroxysmal anxiety]; O99.344 Other mental disorders complicating childbirth; Z3A.40 40 weeks gestation of pregnancy
CPT/HCPCS: 36415; 80053; 80307; 81005; 82553; 83735; 84443; 84484; 85025; 85027; 86592; 86850; 86900; 86901; 93005; 93010; J2540; J2590; J3010; J3490; J7060